=== PATIENT | male | born 1945 ===

== ENCOUNTER → 2016-10-01 | Outpatient (CLI) | payer MEDICARE, OTHER ==
[2016-10-01 19:57] LABS: BUN/CREATININE RATIO 14.7; CALCIUM SERUM 8.7 mg/dL (8.4-10.2); CREATININE SERUM 1.7 mg/dL (0.6-1.4); GLOM FILT RATE Estimated 42.7 mL/min (>60); POTASSIUM 4.9 mmol/L (3.5-5.1)
== END | disposition home or self-care (01) ==
LOC: CLAB 18:15
PROVIDERS: Internal Medicine Interventional Cardiology
DX: R60.0 Localized edema (principal)
CPT/HCPCS: 36415; 80048; 83735

== ENCOUNTER → 2016-10-22 | Outpatient (CLI) | payer MEDICARE, OTHER ==
[2016-10-22 15:40] LABS: CHOLESTEROL 202 mg/dL (0-200); GLUCOSE FASTING 96 mg/dL (70-110); HDL CHOLESTEROL 24 mg/dL (29-75); LDL CHOLESTEROL 125 mg/dL (-130); LDL/HDL RATIO 5 RATIO (0-4); TRIGLYCERIDES 265 mg/dL (10-160)
== END | disposition home or self-care (01) ==
LOC: CLAB 14:30
DX: Z48.812 Encounter for surgical aftercare following surgery on the circulatory system (principal); Z95.1 Presence of aortocoronary bypass graft
CPT/HCPCS: 36415; 80061; 82947; 83036; 86140